=== PATIENT | male | born 1965 | race Caucasian/White ===

== ENCOUNTER 2019-11-05 08:17 | Outpatient (CLI) | payer MEDICAID ==
[~2019-11-05 08:17] MED LIST: ASPI-842 PO; INSU100V36 SQ; INSU100V37 SQ; LEVO175T2 PO; LISI40TA4 PO; PRED20TA PO; TRAM50TA2 PO; ZOLP10TA5 PO
== END 2019-11-05 23:59 | disposition home or self-care (01) ==
LOC: RAD 08:17
PROVIDERS: ATTEND Family Medicine
DX: R10.11 Right upper quadrant pain (principal)
CPT/HCPCS: 76700

== ENCOUNTER 2021-09-03 15:23 | Emergency (ER) | payer MEDICAID ==
[~2021-09-03] VITALS: Ht 180.3 cm; Wt 120.0 kg
[~2021-09-03 15:23] MED LIST changes: +LISI40TA13 PO; -LISI40TA4 PO
[2021-09-03 15:48] VITALS: BP 201/93
== END 2021-09-03 20:15 | disposition left against medical advice (07) ==
LOC: ER 15:24
DX: R04.0 Epistaxis (principal); Z53.21 Procedure and treatment not carried out due to patient leaving prior to being seen by health care provider

== ENCOUNTER 2022-04-27 10:57 | Emergency (ER) | payer MEDICAID ==
[~2022-04-27] VITALS: Ht 180.3 cm; Wt 126.8 kg
[2022-04-27 12:00] LABS: BASOPHILS % (AUTO) 0.3 % (0-1); EOSINOPHILS # (AUTO) 0.1 X10'3 (0-0.9); EOSINOPHILS % (AUTO) 1.1 % (0-6); HEMATOCRIT 39.7 % (42.0-52.0); HEMOGLOBIN 13.6 g/dl (14.0-17.9); LYMPHOCYTES # (AUTO) 1.8 X10'3 (1.1-4.8); LYMPHOCYTES % (AUTO) 20.2 % (21-51); MEAN CORPUSCULAR HEMOGLOBIN 30.7 PG (27.0-31.0); MEAN CORPUSCULAR HGB CONC 34.2 g/dL (33.0-36.5); MEAN CORPUSCULAR VOLUME 89.7 FL (78-98); MONOCYTES # (AUTO) 0.4 X10'3 (0-0.9); MONOCYTES % (AUTO) 4.8 % (2-12); NEUTROPHILS # (AUTO) 6.5 X10'3 (1.8-7.7); NEUTROPHILS % (AUTO) 73.6 % (42-75); PLATELET COUNT 278 X10'3 (140-440); RED BLOOD COUNT 4.43 X10'6 (4.70-6.10); RED CELL DISTRIBUTION WIDTH 13.6 % (11.5-14.5); WHITE BLOOD COUNT 8.8 X10'3 (4.5-11.0)
[2022-04-27 12:19] LABS: ALANINE AMINOTRANSFERASE 19 U/L (12-78); ALBUMIN 3.5 G/DL (3.4-5.0); ALBUMIN/GLOBULIN RATIO 0.9 (1.1-1.5); ALKALINE PHOSPHATASE 66 IU/L (46-116); ANION GAP 10 (8-16); ASPARTATE AMINO TRANSFERASE 16 U/L (10-37); BILIRUBIN,TOTAL 0.4 MG/DL (0.1-1.0); BLOOD UREA NITROGEN 11 MG/DL (7-18); BUN/CREATININE RATIO 11.5 (5.4-32.0); CALCIUM 8.6 MG/DL (8.5-10.1); CHLORIDE 98 MMOL/L (99-107); CREATININE 0.96 MG/DL (0.60-1.10); GLUCOSE 285 MG/DL (70-104); POTASSIUM 4.2 MMOL/L (3.5-5.1); SODIUM 134 MMOL/L (135-145); TOTAL PROTEIN 7.3 G/DL (6.4-8.2); eGFR 81 ML/MIN
[2022-04-27 12:26] LABS: LIPASE < 50 U/L (73-393)
[2022-04-27] MEDS ORDERED: mag hydrox/Alum hydrox/simeth 30ml oral suspension PO ONE (15:25)
[2022-04-27] MEDS ORDERED: sucralfate 1 gm tablet PO ONE (15:25)
[2022-04-27] MEDS ORDERED: LIDOcaine Viscous 15ml cup MM ONE (15:25)
[2022-04-27] MEDS ORDERED: PANT-47 PO (15:26)
[2022-04-27 15:50] VITALS: BP 184/101
--- NOTE | 2022-04-27 15:55 | NUR ---
Pt given and understands d/c instructions. Ambulatory with a steady gait.
== END 2022-04-27 15:55 | disposition home or self-care (01) ==
LOC: ER 10:58
DX: K29.70 Gastritis, unspecified, without bleeding (principal); E11.9 Type 2 diabetes mellitus without complications; Z88.8 Allergy status to other drugs, medicaments and biological substances; Z79.899 Other long term (current) drug therapy; Z79.82 Long term (current) use of aspirin; Z79.84 Long term (current) use of oral hypoglycemic drugs
CPT/HCPCS: 36415; 71045; 80053; 83690; 83880; 84484; 85025; 93005; 99285